=== PATIENT | male | born 1965 | race African-American/Black ===

== ENCOUNTER 2021-10-21 00:39 | Emergency (ER) | payer SELFPAY ==
[2021-10-21 00:52] VITALS: BP 130/75; BP 130/85; PULSE 105; PULSE 90; RESP 18; TEMP 36.7; O2SAT 93; O2SAT 95; BMI 48.8
--- NOTE | 2021-10-21 04:37 | ED.GENADULT ---
HPI - General Adult General Chief complaint: General Medical Stated complaint: ankle pain Time Seen by Provider: 10/21/21 04:37 Source: patient Mode of arrival: EMS History of Present Illness HPI narrative: Patient with no significant medical complaints coming here to sleep as he is homeless and came to [place] to sleep also complaining of bilateral ankle pain which her been there for long time no recent injuries. After coming to the ER patient been sleeping denies any medical complaints Related Data Allergies Allergy/AdvReac Type Severity Reaction Status Date / Time No Known Allergies Allergy Verified 10/21/21 00:50 Review of Systems Review of Systems: Yes all other systems are reviewed and are negative PMFSH Social History Social History Advance Directives: No Advance Directives Information Provided: Yes Physical Exam ED Vital Signs: Vital Signs - 24 hr 10/21/21 00:52 Temperature 98.0 F Pulse Rate 90 Respiratory Rate 18 Blood Pressure 130/75 Pulse Oximetry 95 Oxygen Delivery Method Room Air BMI result Body Mass Index 48.8 Appearance: Alert. Oriented X3. No acute distress. ENT: Pharynx normal. Oral Mucosa moist Neck: Normal inspection. Neck supple. CVS: Normal heart rate and rhythm. Pulses normal. Respiratory: No respiratory distress. Equal air entry bilateral, no wheezing/rales/rhonchi abd: Soft nontender Skin: Skin warm and dry. Normal skin color. Normal skin turgor. Extremities: No lower extremity edema. Neuro: Oriented X 3. Medical Decision Making MDM Narrative Medical decision making narrative: Patient with no medical complaints comes here to sleep advised to go to [facility] instead of coming to the hospital Discharge Plan Discharge Clinical Impression: Chronic pain, Homeless Patient Disposition: Home, Self-Care Instructions: Chronic Pain (ED) Additional Instructions: Follow with PCP / social work instructor Interventions: ED Discharge Assessment Last Done: 10/21/21 04:58 Discharge Date/Time: 10/21/21 04:59 Print Language: Polish
== END 2021-10-21 04:59 | disposition home or self-care (01) ==
LOC: HO.ED 04:54
PROVIDERS: Emergency Provider Internal Medicine
DX: M25.571 Pain in right ankle and joints of right foot (principal); M25.572 Pain in left ankle and joints of left foot; G89.29 Other chronic pain; Z59.00 Homelessness unspecified
CPT/HCPCS: 99282